=== PATIENT | female | born 1960 | race Caucasian/White ===

== ENCOUNTER 2017-09-07 06:07 | Day surgery (SDC) | payer MEDICARE, BC ==
[~2017-09-07] VITALS: Ht 167.6 cm; Wt 68.2 kg
[2017-09-07 06:20] VITALS: BP 144/91
[2017-09-07] MEDS ORDERED: ATOR40TA PO (06:32)
[2017-09-07] MEDS ORDERED: OMEP20CA10 PO (06:32)
[2017-09-07] MEDS ORDERED: LISI10TA4 PO (06:33)
[2017-09-07] MEDS ORDERED: DIAZ2TAB3 PO (06:34)
[2017-09-07] MEDS ORDERED: TRAM50TA2 PO (06:34)
[2017-09-07] MEDS ORDERED: TEMA30CA PO (06:35)
[2017-09-07] MEDS ORDERED: DIPH-423 PO (06:36)
[2017-09-07] MEDS ORDERED: diclofenac cream TOP (06:39)
[2017-09-07] MEDS ORDERED: LIDO1ADH TOP (06:40)
[2017-09-07] MEDS ORDERED: CHOL1POW2 PO (06:40)
[2017-09-07] MEDS ORDERED: DOCU-28 PO (06:41)
[2017-09-07] MEDS ORDERED: fentaNYL/PF 50MCG/1 ML 2ML syringe ONE (06:51)
[2017-09-07] MEDS ORDERED: MIDAZolam 5mg/5ml vial ONE (06:52)
[2017-09-07 07:10] VITALS: BP 123/68
[2017-09-07 07:20] VITALS: BP 117/70
[2017-09-07 07:30] VITALS: BP 125/75
[2017-09-07 07:40] VITALS: BP 137/78
== END 2017-09-07 07:55 | disposition home or self-care (01) ==
LOC: GI LAB 06:07
PROVIDERS: ATTEND Internal Medicine Gastroenterology
DX: K58.9 Irritable bowel syndrome, unspecified (principal)
CPT/HCPCS: 45330; 99152; J2250; J3010; J7030; A4620; G0500